=== PATIENT | female | born 1965 | race Caucasian/White ===

== ENCOUNTER → 2017-07-30 08:26 | Outpatient (CLI) | payer BC, SELFPAY | PROVIDERS: Visit Provider Podiatrist | DX: M79.673 Pain in unspecified foot (principal) ==

== ENCOUNTER → 2017-08-05 10:36 | Outpatient (CLI) | payer BC, SELFPAY ==
--- NOTE | 2017-08-05 11:08 | XR_ITS ---
XR foot RT min 3V HISTORY: ITS.REASON: BILAT FOOT PAIN ORDERING PHYSICIAN: Olivia Wilcox DPM PATIENT AGE: 52 years COMPARISON: None FINDINGS: No fracture or dislocation. No lytic or blastic change. There is normal mineralization.. The joint spaces are well-preserved. No significant degenerative/arthritic changes. No erosive changes evident. There is flexion of the second toe IMPRESSION: 1. Flexion of the second toe. 2. Otherwise negative right foot
--- NOTE | 2017-08-05 11:08 | XR_ITS ---
XR foot LT min 3V HISTORY: ITS.REASON: BILAT FOOT PAIN ORDERING PHYSICIAN: Olivia Wilcox DPM PATIENT AGE: 52 years COMPARISON: None FINDINGS: No fracture or dislocation. No lytic or blastic change. There is normal mineralization.. The joint spaces are well-preserved. No significant degenerative/arthritic changes. No erosive changes evident. There is flexion of the second toe IMPRESSION: 1. Flexion of the second toe. 2. Otherwise negative left foot
== END ==
PROVIDERS: PCP Family Medicine; Visit Provider Podiatrist
DX: M79.673 Pain in unspecified foot (principal)
CPT/HCPCS: 73630

== ENCOUNTER → 2019-02-22 15:58 | Outpatient (POV) | payer BC, SELFPAY | PROVIDERS: Visit Provider Nurse Practitioner Family | DX: Z00.00 Encounter for general adult medical examination without abnormal findings (principal) ==

== ENCOUNTER → 2020-11-03 10:06 | Outpatient (CLI) | payer BC, SELFPAY | PROVIDERS: PCP Family Medicine; Visit Provider Nurse Practitioner | DX: Z20.822 Contact with and (suspected) exposure to COVID-19 (principal) | CPT/HCPCS: C9803; U0003; U0005 ==

== ENCOUNTER → 2021-05-29 10:33 | Outpatient (CLI) | payer BC, SELFPAY ==
--- NOTE | 2021-05-29 10:46 | US_ITS ---
FINAL REPORT TECHNIQUE: Ultrasound images of the kidneys and bladder were obtained. CLINICAL HISTORY: HEMATURIA FINDINGS: The right kidney measures 9.1 cm in length. It is normal in echogenicity. There is no hydronephrosis. The left kidney measures 9.2 cm in length. It is normal in echogenicity. There is no hydronephrosis. The spleen is unremarkable. IMPRESSION: No hydronephrosis. Reviewed, Interpreted and Dictated by Rashaad Mendoza MD Transcribed by Micaela Judd Authenticated by Rashaad Mendoza MD on 05/29/2021 02:04:28 PM [facility]
--- NOTE | 2021-05-29 10:46 | US_ITS ---
FINAL REPORT CLINICAL HISTORY: HEMATURIA FINDINGS: Sonographic images were obtained of the urinary bladder. The bladder has a normal configuration. There is a negligible amount of residual volume. Ureteral jets are visualized. No masses are seen. IMPRESSION: Unremarkable urinary bladder. Reviewed, Interpreted and Dictated by Rashaad Mendoza MD Transcribed by Micaela Judd Authenticated by Rashaad Mendoza MD on 05/29/2021 02:04:27 PM [facility]
== END ==
PROVIDERS: PCP Family Medicine; Visit Provider Nurse Practitioner Family
DX: R31.21 Asymptomatic microscopic hematuria (principal)
CPT/HCPCS: 76770; 76857

== ENCOUNTER → 2021-06-28 19:17 | Outpatient (CLI) | payer BC, SELFPAY ==
[2021-06-28 10:21] LABS: Microscopic, Urine URINE MICROSCOPIC (MICROSCOPIC)
[2021-06-28 10:28] LABS: Appearance,Urine CLEAR (Clear); Bilirubin,Urine Negative (Negative); Blood, Urine 2+ (Negative); Color,Urine YELLOW (Yellow); Glucose,Urine (UA) Negative (Negative); Ketones,Urine Negative (Negative); Leukocyte Esterase,Urine Negative (Negative); Nitrate,Urine Negative (Negative); Protein,Urine Negative (Negative); Urobilinogen,Urine 0.2 EU/dl (0.2)
[2021-06-28 10:40] LABS: Bacteria,Urine Trace /lpf; RBC,Urine Occasional #/hpf (0-3)
== END ==
PROVIDERS: Visit Provider Urology
DX: R31.9 Hematuria, unspecified (principal)
CPT/HCPCS: 81001

== ENCOUNTER → 2021-07-18 10:10 | Outpatient (CLI) | payer BC, SELFPAY | PROVIDERS: PCP Family Medicine; Visit Provider Urology | DX: Z01.812 Encounter for preprocedural laboratory examination (principal); Z20.822 Contact with and (suspected) exposure to COVID-19; R31.9 Hematuria, unspecified | CPT/HCPCS: C9803; U0003; U0005 ==

== ENCOUNTER 2021-07-20 09:08 | Day surgery (SDC) | payer BC, SELFPAY ==
[2021-07-17 14:34] VITALS: BMI 22.3
[2021-07-20 09:39] VITALS: BP 133/82; PULSE 100; RESP 18; TEMP 36.8; O2SAT 100
[2021-07-20 10:14] VITALS: BP 128/90; PULSE 95; RESP 18; TEMP 36.5; O2SAT 97
[2021-07-20 10:20] VITALS: BP 128/90; PULSE 95; RESP 18; TEMP 36.5; O2SAT 97
--- NOTE | 2021-07-20 10:45 | HMH.OPNOTE ---
Date of procedure: 07/20/21 Pre-op Diagnosis:: Microhematuria Post-op Diagnosis:: Microhematuria Procedure performed:: Cystoscopy Surgeon:: Sam Ambriz MD Anesthesia: local Estimated blood loss (mL): 0 Clinical Note:: 6-year-old white female with persistent microscopic hematuria returns for cystoscopic evaluation today. Previous CT scan has shown no evidence of upper tract abnormalities. Operative findings:: Bladder was normal. Small amount of erythema at the bladder neck. Operative note:: Patient taken to the cystoscopy suite after informed consent was obtained. On the stretcher she was placed in the frog-leg position and prepped draped in the standard surgical fashion. 2% lidocaine placed into the urethra after 5 minutes the flexible cystoscope introduced into the urethral meatus and into the bladder without difficulty. The bladder was examined in a systematic fashion. There is no evidence of tumors, stones, diverticula or trabeculation. The ureteral orifices in their normal anatomic position with clear efflux of urine. Retroflexion of the cystoscope showed some mild erythema at the bladder neck. Rest of the urethra was within normal limits. The scope removed. Patient tolerated procedure well. We discussed the findings and patient reassured there is no evidence of any suspicious abnormalities and to return as needed. Condition: stable Disposition: same day Specimens:: None Complications:: None
== END 2021-07-20 10:20 | disposition home or self-care (01) ==
LOC: OUTP 09:12
PROVIDERS: PCP Family Medicine; Visit Provider Urology
PROC: (CPT 52000; principal; 2021-07-20 10:00)
DX: R31.29 Other microscopic hematuria (principal)
CPT/HCPCS: 52000

== ENCOUNTER → 2021-11-27 10:46 | Outpatient (POV) | payer BC, SELFPAY | PROVIDERS: Visit Provider Dermatology | DX: Z00.00 Encounter for general adult medical examination without abnormal findings (principal) ==

== ENCOUNTER → 2022-01-08 09:20 | Outpatient (POV) | payer BC, SELFPAY | PROVIDERS: Visit Provider Dermatology | DX: Z00.00 Encounter for general adult medical examination without abnormal findings (principal) ==

== ENCOUNTER → 2022-12-12 09:37 | Outpatient (CLI) | payer BC, SELFPAY ==
--- NOTE | 2022-12-12 09:42 | XR_ITS ---
FINAL REPORT CLINICAL HISTORY: right rib pain, dyspnea, cough cough for a month chest pain x 1 week pain on right ribs for 2 weeks COMPARISON: 01/23/2017 FINDINGS: Two views of the chest were obtained. The heart size and pulmonary vascularity are within normal limits. The mediastinum is normal. No acute pulmonary abnormality is identified. There is no pneumothorax. The bony thorax is intact. IMPRESSION: No active cardiopulmonary disease. Reviewed, Interpreted and Dictated by Zak Escamilla III, MD Transcribed by Tammy Harris Authenticated and [facility]
== END ==
PROVIDERS: PCP Nurse Practitioner Family; Visit Provider Nurse Practitioner Family
DX: M94.0 Chondrocostal junction syndrome [Tietze] (principal); R05.9 Cough, unspecified
CPT/HCPCS: 71046

== ENCOUNTER → 2023-01-08 09:13 | Outpatient (CLI) | payer BC, SELFPAY ==
[2023-01-08 09:29] LABS: Basophils # 0.1 K/mm3 (0-0.2); Basophils % 0.7 % (0.1-2.0); Eosinophils # 0.2 K/mm3 (0.0-0.4); Hemoglobin 13.9 g/dL (12.2-16.2); Lymphocytes # 2.2 K/mm3 (0.7-4.5); Lymphocytes % 23.8 % (10-50); Mean Corpuscular HGB Conc 33.8 g/dL (31.8-35.4); Mean Corpuscular Hemoglobin 32.8 pg (27.0-31.2); Mean Corpuscular Volume 97.1 fl (81-99); Mean Platelet Volume 7.6 fl (7.4-10.4); Monocytes # 0.4 K/mm3 (0.1-1.0); Monocytes % 4.2 % (1.7-9.3); Neutrophils # 6.4 K/mm3 (1.8-7.8); Neutrophils % 69.3 % (37.0-80.0); Platelet Count 321 K/mm3 (142-424); Red Blood Count 4.23 M/mm3 (4.20-5.40); Red Cell Distribution Width 13.5 % (11.5-17.5); White Blood Count 9.2 K/mm3 (4.8-10.8)
[2023-01-08 10:21] LABS: Alanine Aminotransferase 24 U/L (12-78); Albumin Level 4.2 g/dl (3.5-5.0); Albumin/Globulin Ratio 1.5 (1.1-1.8); Alkaline Phosphatase 180 U/L (38-126); Aspartate Amino Transferase 31 U/L (14-36); Bilirubin,Total 0.4 mg/dl (0.2-1.3); Blood Urea Nitrogen 7 mg/dl (7-17); Calcium 9.1 mg/dl (8.4-10.2); Carbon Dioxide 29 mmol/L (22.0-30.0); Chloride 102 mmol/L (98-107); Chol/HDL Ratio 3.4 (1-3.5); Cholesterol 211 mg/dl (140-200); Estimated Glomerular Filt Rate 74 ml/min (>60); GFR (African American) 90 ML/MIN (>60); Globulin 2.8 g/dL (1.3-3.2); Glucose 83 mg/dl (74-100); HDL Cholesterol 62 mg/dl (40-60); Sodium 137 mmol/L (136-145); Triglycerides 78 mg/dl (30-150); VLDL Cholesterol 16 mg/dL (0-40)
[2023-01-08 10:32] LABS: Direct LDL Cholesterol 131.71 mg/dL (100-129)
[2023-01-08 10:38] LABS: 25-OH Vitamin D, Total 45.9 ng/mL (30-100)
[2023-01-08 10:50] LABS: Thyroid Stimulating Hormone 0.78 uIU/mL (0.465-4.68)
[2023-01-08 11:10] LABS: Vitamin B12 450 pg/mL (239-931)
[2023-01-08 11:49] LABS: Ferritin 39.7 ng/ml (11.1-264)
[2023-01-10 13:00] LABS: Alkaline Phosphatase 145 IU/L (44-121); Bone Fraction: 14 % (14-68); Intestinal Frac.: 0 % (0-18); Liver Fraction: 86 % (18-85)
== END ==
PROVIDERS: PCP Nurse Practitioner Family; Visit Provider Nurse Practitioner Family
DX: R23.3 Spontaneous ecchymoses (principal); R25.2 Cramp and spasm; Z13.220 Encounter for screening for lipoid disorders; Z13.0 Encounter for screening for diseases of the blood and blood-forming organs and certain disorders involving the immune mechanism; R74.8 Abnormal levels of other serum enzymes
CPT/HCPCS: 36415; 80053; 80061; 82180; 82306; 82607; 82728; 83735; 84075; 84080; 84443; 85025

== ENCOUNTER → 2023-02-03 07:48 | Outpatient (CLI) | payer BC, SELFPAY ==
--- NOTE | 2023-02-03 07:48 | US_ITS ---
FINAL REPORT CLINICAL HISTORY: elevated liver enzymes COMPARISON: None FINDINGS: Sonographic images of the right upper quadrant were obtained. The pancreas is partially obscured.The liver has an unremarkable appearance. The gallbladder has been surgically removed. There is no evidence of biliary ductal dilatation.The common duct measures 4mm. Limited images of the right kidney are unremarkable. IMPRESSION: Prior cholecystectomy. Otherwise unremarkable limited ultrasound of the upper abdomen. Reviewed, Interpreted and Dictated by Rashaad Mendoza MD Transcribed by Angelia Platt Authenticated and [facility]
== END ==
PROVIDERS: PCP Nurse Practitioner Family; Visit Provider Nurse Practitioner Family
DX: R74.8 Abnormal levels of other serum enzymes (principal)
CPT/HCPCS: 76705

== ENCOUNTER 2023-04-07 12:45 | Outpatient (CLI) | payer BC, SELFPAY ==
[2023-04-07 13:58] LABS: Bilirubin,Unconjugated 0.3 mg/dL (0.0-1.1)
[2023-04-07 13:59] LABS: Alanine Aminotransferase 19 U/L (12-78); Albumin Level 4.2 g/dl (3.5-5.0); Alkaline Phosphatase 92 U/L (38-126); Aspartate Amino Transferase 29 U/L (14-36); Bilirubin,Direct 0.2 mg/dl (0.0-0.4); Bilirubin,Indirect 0.3 mg/dL (0.0-0.9); Bilirubin,Total 0.5 mg/dl (0.2-1.3); Chol/HDL Ratio 4.5 (1-3.5); Cholesterol 228 mg/dl (140-200); HDL Cholesterol 51 mg/dl (40-60); Total Protein,Serum 6.8 g/dl (6.3-8.2); Triglycerides 87 mg/dl (30-150); VLDL Cholesterol 17 mg/dL (0-40)
[2023-04-07 14:10] LABS: Direct LDL Cholesterol 129.71 mg/dL (100-129)
== END 2023-04-07 23:59 ==
LOC: LAB.DROPOF 12:45
PROVIDERS: PCP Nurse Practitioner Family; Visit Provider Nurse Practitioner Family
DX: R74.8 Abnormal levels of other serum enzymes (principal); Z13.220 Encounter for screening for lipoid disorders
CPT/HCPCS: 80061; 80076

== ENCOUNTER 2023-07-15 14:54 | Outpatient (CLI) | payer BC, SELFPAY ==
[2023-07-15 16:51] LABS: Chloride 104 mmol/L (98-107); Potassium 4.8 mmoL/L (3.5-5.1); Sodium 141 mmol/L (136-145)
[2023-07-15 16:53] LABS: Alanine Aminotransferase 19 U/L (12-78); Alkaline Phosphatase 91 U/L (38-126); Aspartate Amino Transferase 34 U/L (14-36); Bilirubin,Total 0.5 mg/dl (0.2-1.3); Blood Urea Nitrogen 12 mg/dl (7-17); Estimated Glomerular Filt Rate 86 ml/min (>60); GFR (African American) 104 ML/MIN (>60)
[2023-07-15 16:54] LABS: Albumin Level 4.5 g/dl (3.5-5.0); Albumin/Globulin Ratio 1.7 (1.1-1.8); Anion Gap 12.8 mEq/L (5-15); Calcium 9.8 mg/dl (8.4-10.2); Carbon Dioxide 29 mmol/L (22.0-30.0); Chol/HDL Ratio 2.8 (1-3.5); Cholesterol 223 mg/dl (140-200); Globulin 2.7 g/dL (1.3-3.2); Glucose 71 mg/dl (74-100); HDL Cholesterol 80 mg/dl (40-60); Total Protein,Serum 7.2 g/dl (6.3-8.2); Triglycerides 63 mg/dl (30-150); VLDL Cholesterol 13 mg/dL (0-40)
[2023-07-15 17:06] LABS: Direct LDL Cholesterol 129.78 mg/dL (100-129)
[2023-07-15 17:31] LABS: Ferritin 29.6 ng/ml (11.1-264)
[2023-07-15 20:36] LABS: Vitamin B12 540 pg/mL (239-931)
== END 2023-07-15 23:59 | disposition home or self-care (01) ==
LOC: LAB.DROPOF 14:54
PROVIDERS: PCP Nurse Practitioner Family; Visit Provider Nurse Practitioner Family
DX: R74.8 Abnormal levels of other serum enzymes (principal); R20.0 Anesthesia of skin; Z13.220 Encounter for screening for lipoid disorders; E78.5 Hyperlipidemia, unspecified; Z79.899 Other long term (current) drug therapy
CPT/HCPCS: 80053; 80061; 82607; 82728

== ENCOUNTER 2023-08-01 18:00 | Outpatient (CLI) | payer BC, SELFPAY | END 2023-08-01 23:59 | disposition home or self-care (01) | LOC: LAB.DROPOF 08-02 08:52 | PROVIDERS: PCP Student in an Organized Health Care Education/Training Program; Visit Provider Student in an Organized Health Care Education/Training Program | DX: N39.0 Urinary tract infection, site not specified (principal) | CPT/HCPCS: 87086 ==

== ENCOUNTER 2023-11-25 10:00 | Outpatient (POV) | payer BC, SELFPAY | END 2023-11-25 23:59 | disposition home or self-care (01) | LOC: SC 11-26 06:27 | PROVIDERS: Visit Provider Dermatology | DX: Z00.00 Encounter for general adult medical examination without abnormal findings (principal) ==

== ENCOUNTER 2024-01-04 16:01 | Emergency (ER) | payer BC, SELFPAY ==
--- NOTE | 2024-01-04 16:07 | XR_ITS ---
PROCEDURE INFORMATION: Exam: XR Chest Exam date and time: 01/04/2024 4:08 PM Age: 58 years old Clinical indication: Shortness of breath; Additional info: SOA TECHNIQUE: Imaging protocol: Radiologic exam of the chest. Views: 2 views. COMPARISON: No relevant prior studies available. FINDINGS: Lungs: Calcified granuloma within the right midlung zone. No focal consolidations or pulmonary edema. Pleural spaces: Unremarkable. No pleural effusion. No pneumothorax. Heart/Mediastinum: Normal. Vasculature: Atherosclerotic vascular disease. Bones/joints: No acute abnormality. IMPRESSION: No acute cardiopulmonary abnormality.
[2024-01-04 16:38] VITALS: BP 154/75; PULSE 82; RESP 18; TEMP 36.8; O2SAT 99; BMI 22.6
--- NOTE | 2024-01-04 16:52 | EXP.UTC ---
Discharge Plan Disposition Patient Disposition: Home, Self-Care Condition: Good Prescriptions Prescriptions: New azithromycin [Zithromax] 250 mg tablet 250 mg PO UD DOSE PK Qty: 6 0RF Rx Instructions: Take two (2) tablets today, then one (1) tablet days #2 thru #5 benzonatate 100 mg capsule 100 mg PO TIDP PRN (Reason: Cough) Qty: 30 0RF methylprednisolone 4 mg Tablets,Dose Pack 4 mg PO DIRECTED 6 Days Qty: 21 0RF Rx Instructions: Take 1 pack as directed for 6 days No Action Adult 50 Plus Probiotic 4 billion cell capsule 4,000 mmu cells PO DAILY Rx Instructions: administer with a meal calcium carbonate-vitamin D2 500 mg(1,250mg) -200 unit tablet 1 tab PO DAILY multivitamin Tablet 1 tab PO DAILY milk thistle 175 mg tablet 1,000 mg PO DAILY Rx Instructions: give with meal/snack omega 2-yds-tvx-fish oil [Fish Oil] 1,000 mg (120 mg-180 mg) capsule 1 cap PO DAILY pantoprazole 20 mg tablet,delayed release (DR/EC) 20 mg PO DAILY 30 Days Qty: 30 6RF azithromycin [Zithromax Z-Coleman] 250 mg tablet See Rx Instructions PO .COMPLEX Qty: 6 0RF Rx Instructions: For 250 mg dose pack: take 500 mg today (day 1), then 250 mg for 4 days (days 2-5) PO bxqckqudfdlxqbd-ugxcmcigr-TX [Bromfed DM] 2-30-10 mg/5 mL syrup 5 ml PO Q4-6H PRN (Reason: sinus symptoms) Qty: 118 0RF Lo Loestrin Fe 1 mg-10 mcg (24)/10 mcg (2) tablet 0.5 tab PO DAILY Qty: 140 1RF Referrals Follow up/Referrals: Kimmie Maldonado APRN [Primary Care Provider] - See instructions Activity Restrictions/Add. Instructions Additional Instructions/Restrictions: Drink plenty of fluids. Take tylenol or ibuprofen for pain or fever. Take the medications as directed. Follow up with your regular doctor. GO TO THE ER FOR ANY WORSENING SYMPTOMS Clinical Impressions Clinical Impression: Sinusitis, Bronchitis, Acute viral syndrome Stand Alone Forms Stand Alone Forms: Work/School Release Instructions Patient Instructions: Sinusitis, DI for Sinusitis Print Language Print Language: Lao Discharge ED Provider: Lance [facility] HPI General Stated complaint: soa Mode of Arrival: Ambulatory Source of Information: Patient Time Seen by Provider: 01/04/24 16:47 Description of Symptoms (Recalled from Triage Doc. by RN): DRAIANGE, COUGH AND SOB HEENT Symptoms (Recalled from RN notes): No Resp Symptoms (Recalled from RN notes): Yes Skin Symptoms (Recalled from RN notes): No MS Symptoms (Recalled from RN notes): No Functional Status (Recalled from RN notes): WNL Related Data Home Medications ?Medication ?Instructions ?Recorded ?Confirmed calcium carb-ergocalciferol (vit 1 tab PO DAILY 12/12/22 11/04/23 D2) 500 mg (1,250 mg)-200 unit tablet lactobacillus combination no.9 4 4,000 mmu cells PO DAILY 12/12/22 11/04/23 billion cell capsule (Adult 50 Plus Probiotic) multivitamin 1 tab PO DAILY 12/12/22 11/04/23 milk thistle 175 mg tablet 1,000 mg PO DAILY 04/07/23 11/04/23 omega 1-cns-kgt-fish oil 1,000 mg 1 cap PO DAILY 04/07/23 11/04/23 (120 mg-180 mg) capsule (Fish Oil) Previous Rx's ?Medication ?Instructions ?Recorded pantoprazole 20 mg tablet,delayed 20 mg PO DAILY acid reflux 30 days 04/07/23 release #30 tabs norethindrone 1 mg-ethinyl 0.5 tab PO DAILY #140 tabs 07/30/23 estradiol 10 mcg (24)-iron 10 mcg(2) tablet (Lo Loestrin Fe) azithromycin 250 mg tablet See Rx Instructions PO .COMPLEX #6 11/04/23 (Zithromax Z-Coleman) tabs oggvzfiscdizivf-uyvsupqnsmgpeak-XX 5 ml PO Q4-6H PRN sinus symptoms 11/04/23 2 mg-30 mg-10 mg/5 mL oral syrup #118 mL (Bromfed DM) azithromycin 250 mg tablet 250 mg PO UD DOSE PK #6 tabs 01/04/24 (Zithromax) benzonatate 100 mg capsule 100 mg PO TIDP PRN Cough #30 caps 01/04/24 methylprednisolone 4 mg tablets in 4 mg PO DIRECTED 6 days #21 tabs 01/04/24 a dose pack Allergies Allergy/AdvReac Type Severity Reaction Status Date / Time nitrofurantoin (From Allergy Mild Verified 11/04/23 14:06 MACROBID) Worker's Comp Is this a Worker's Comp case?: No [facility] Disclaimer: The information contained in this section may have been updated after the patient was seen, as this information can be updated by other users. Medical History Acute costochondritis Right Dyspnea Petechiae GERD (gastroesophageal reflux disease) Muscle cramp Screening, deficiency anemia, iron Screening for cholesterol level Elevated alkaline phosphatase level Hyperlipidemia Surgical History History of removal of ovarian cyst H/O tubal ligation History of cholecystectomy History of appendectomy Family History Other Hypertension Social History Smoking Status: Never smoker alcohol intake: never substance use type: denies use current occupational status: employed household members: spouse housing: house caffeine: Yes ROS Obtained: Yes All systems reviewed & no additional complaints except as documented Constitutional Constitutional: Reports chills and Reports fever(s) Eyes Eyes: Denies eye discharge ENT Ears, Nose, Mouth, and Throat: Reports as per HPI Cardiovascular Cardiovascular: Denies chest pain Respiratory Respiratory: Denies chest congestion and Reports cough Gastrointestinal Gastrointestingal: Reports nausea; Denies abdominal pain, constipation, cramping, diarrhea or vomiting Musculoskeletal Musculoskeletal: Denies arthralgias Integumentary/Breasts Skin/Breast: Denies rash Neurologic Neurologic: Denies paresthesias Physical Exam General General appearance: alert and in no apparent distress Head Head exam: atraumatic, normocephalic and normal inspection Eye Eye exam: Present normal appearance, PERRL and EOMI ENT ENT exam: Present mucous membranes moist and normal external ear exam Expanded ENT Exam TM/Canal exam: Bilateral TM: erythema and bulging Nose exam: Absent sinus tenderness Mouth exam: Present normal external inspection; Absent drooling Teeth exam: Present normal inspection Throat exam: Present tonsillar erythema, tonsillomegaly and tonsillar exudate Neck Neck exam: Present normal inspection, full ROM and trachea midline; Absent tenderness, meningismus or lymphadenopathy Chest Chest inspection: Present normal inspection and symmetric chest wall rise; Absent tenderness Respiratory Respiratory exam: Present normal lung sounds bilaterally; Absent respiratory distress, wheezes, stridor or accessory muscle use Cardiovascular Cardiovascular exam: Present regular rate and normal rhythm; Absent systolic murmur or diastolic murmur Abdominal Exam Abdominal exam: Present soft and normal bowel sounds; Absent distention, tenderness, guarding, rebound or rigidity Extremities Exam Extremities exam: Present normal inspection and normal capillary refill; Absent calf tenderness Back Exam Back exam: Present normal inspection and full ROM; Absent tenderness, CVA tenderness (R) or CVA tenderness (L) Neurological Exam Neurological exam: Present alert, oriented X3 and CN II-XII intact Psychiatric Psychiatric exam: Present normal affect and normal mood Skin Skin exam: Present warm, dry, intact and normal color Medical Decision Making Medical Records Medical records reviewed: No I reviewed the patient's medical records. Screening: Per USPSTF and CDC recommendations, given the prevalence of disease in our region, it is our hospital?s policy to screen for HIV and viral Hepatitis for all patients aged 18 and over and those with ongoing risk factors. Jose Alberto Inquiry Pt receiving controlled substance: No Vital Signs: 01/04/24 16:38 Temperature 98.3 F Temperature Source Oral Pulse Rate [Left Radial] 82 Respiratory Rate 18 Blood Pressure [Left Arm] 154/75 H Blood Pressure Mean [Left Arm] 101 02 Sat by Pulse Oximetry 99 Lab Data Lab results reviewed: Yes I reviewed the patient's lab results. Orders (Tests/Meds): ORDERS Category Date Time Status Chest XR 2 view (NOT portable) [XR chest 2V] Stat Exams 01/04/24 16:07 Taken
[2024-01-04 17:29] VITALS: BP 154/75; PULSE 82; RESP 18; TEMP 36.8
[2024-01-04 17:39] LABS: Coronavirus 19, PCR Not Detected (NotDetected); Influenza A, PCR Not Detected (NotDetected); Influenza B, PCR Not Detected (NotDetected)
== END 2024-01-04 17:34 | disposition home or self-care (01) ==
PROVIDERS: Emergency Provider Nurse Practitioner Family; PCP Nurse Practitioner Family
DX: J01.90 Acute sinusitis, unspecified (principal); J20.9 Acute bronchitis, unspecified; B34.9 Viral infection, unspecified
CPT/HCPCS: 71046; 87636; 99213; G0381

== ENCOUNTER 2024-04-22 16:14 | Outpatient (CLI) | payer BC, SELFPAY ==
--- NOTE | 2024-04-22 16:16 | XR_ITS ---
FINAL REPORT CLINICAL HISTORY: Foot Pain, cyst in arch of foot COMPARISON: 08/05/2017 FINDINGS: LEFT FOOT Three views of the left foot demonstrate no acute fracture or dislocation. There is mild hallux valgus deformity, slightly worse since the prior exam. There is no evidence of periosteal reaction. IMPRESSION: Mild worsening hallux valgus deformity. Reviewed, Interpreted and Dictated by Padmini Munguia MD Transcribed by Briana Gao Authenticated and [facility]
--- NOTE | 2024-04-22 16:16 | XR_ITS ---
FINAL REPORT CLINICAL HISTORY: Foot Pain COMPARISON: 08/05/2017 FINDINGS: RIGHT FOOT 3 views of the right foot were obtained. There is no acute fracture or dislocation. There is minimal hallux valgus deformity, slightly worse since the prior exam. Hammertoe deformities of the 2nd through 4th digits are worse. IMPRESSION: No acute findings. Minimal hallux valgus deformity and hammertoe deformities, worse since the prior exam. Reviewed, Interpreted and Dictated by Padmini Munguia MD Transcribed by Briana Gao Authenticated and [facility]
== END 2024-04-22 23:59 | disposition home or self-care (01) ==
LOC: RAD 16:15
PROVIDERS: PCP Nurse Practitioner Family; Visit Provider Podiatrist
DX: M79.671 Pain in right foot (principal); M79.672 Pain in left foot
CPT/HCPCS: 73630

== ENCOUNTER 2024-04-23 10:04 | Outpatient (CLI) | payer BC, SELFPAY ==
[2024-04-23 14:02] LABS: Alanine Aminotransferase 18 U/L (12-78); Albumin Level 4.7 g/dl (3.5-5.0); Alkaline Phosphatase 94 U/L (38-126); Anion Gap 10.2 mEq/L (5-15); Aspartate Amino Transferase 27 U/L (14-36); Bilirubin,Total 0.4 mg/dl (0.2-1.3); Blood Urea Nitrogen 15 mg/dl (7-17); Calcium 9.3 mg/dl (8.4-10.2); Carbon Dioxide 28 mmol/L (22.0-30.0); Chloride 104 mmol/L (98-107); Chol/HDL Ratio 3.4 (1-3.5); Cholesterol 222 mg/dl (140-200); Estimated Glomerular Filt Rate 86 ml/min (>60); GFR (African American) 104 ML/MIN (>60); Gamma Glutamyl Transpeptidase 15 U/L (12-43); Globulin 2.3 g/dL (1.3-3.2); Glucose 67 mg/dl (74-100); HDL Cholesterol 66 mg/dl (40-60); Potassium 4.2 mmoL/L (3.5-5.1); Sodium 138 mmol/L (136-145); Triglycerides 72 mg/dl (30-150); VLDL Cholesterol 14 mg/dL (0-40)
[2024-04-23 14:13] LABS: Direct LDL Cholesterol 133.42 mg/dL (100-129)
== END 2024-04-23 23:59 | disposition home or self-care (01) ==
LOC: LAB.DROPOF 04-26 15:22
PROVIDERS: PCP Nurse Practitioner Family; Visit Provider Nurse Practitioner Family
DX: E78.5 Hyperlipidemia, unspecified (principal); R74.8 Abnormal levels of other serum enzymes
CPT/HCPCS: 80053; 80061; 82977; 83036

== ENCOUNTER 2024-11-25 10:45 | Outpatient (CLI) | payer BC, SELFPAY ==
--- NOTE | 2024-11-25 10:52 | XR_ITS ---
FINAL REPORT CLINICAL HISTORY: BURSITIS FINDINGS: AP and frog leg views of the right hip were obtained. There is no acute fracture or dislocation. There is degenerative joint disease. Soft tissues are unremarkable. IMPRESSION: No acute osseous abnormality of the right hip. Reviewed, Interpreted and Dictated by Amber Castillo MD Transcribed by Tammy Harris Authenticated and [facility]
== END 2024-11-25 23:59 | disposition home or self-care (01) ==
LOC: RAD 10:47
PROVIDERS: PCP Nurse Practitioner; Visit Provider Family Medicine
DX: M71.9 Bursopathy, unspecified (principal)
CPT/HCPCS: 73502